=== PATIENT | female | born 1970 | race Caucasian/White ===

== ENCOUNTER → 2016-09-01 | Outpatient (CLI) | payer BC ==
[2016-09-01 13:12] VITALS: BP 148/69; PULSE 106; RESP 14; TEMP 98.4; BMI 40.6
--- NOTE | 2016-09-01 17:01 | P.HPBAR ---
Bariatric H&P - History & Physicial H&P Date: 09/01/16 History & Physicial: Visit/CC: band f/u (wants removed) Patient initial contact: Initial weight: 124.738 kg Initial weight in pounds: 275.00 Height: 5 ft 5 in Initial BMI: 45.7 Last weight: Current weight: 110.677 kg Current weight in pounds: 244.00 Current BMI: 40.6 [place] body weight (based on NIH guidelines): 56.699 kg Excess body weight loss: 20.6% The patient is a 45 year-old F who presents for Bariatric Assessment. Patient presents for lab band follow up. She has not been seen in approximately 8 years. She's had GERD for 4-5 years. She apparently has had a upper GI performed at another institution which shows a dilated esophagus and narrowing in her LAP-BAND. Past Medical History Past Medical History: Asthma Additional Past Medical History / Comment(s): one ectopic History of Any Multi-Drug Resistant Organisms: None Reported Past Surgical History: Bariatric Surgery, Section, Cholecystectomy Additional Past Surgical History / Comment(s): lap band 2002, x 3 Additional Past Anesthesia/Blood Transfusion Reaction / Comm: with first bout of anesthesia patient states she "woke up before my organs did and it felt like I couldn't breathe but every anesthesiologist I have spoken with said that it was related to the way they used to do anesthesia and I've never had any problems since." Past Psychological History: Anxiety Smoking Status: Never smoker - Past Family History Sister(s) Family Medical History: Cancer Additional Family Medical History / Comment(s): sister 1: dx with stage 3 breast cancer. sister 2: dx with melanoma Mother Family Medical History: Asthma, Hyperlipidemia Additional Family Medical History / Comment(s): anemic Father Family Medical History: No Reported History Additional Family Medical History / Comment(s): strong familial hx of cancer however father does not see doctor. Surgical - Exam Vital Signs Temp Pulse Resp BP 98.4 F 106 H 14 148/69 09/01/16 13:05 09/01/16 13:05 09/01/16 13:05 09/01/16 13:05 - General well developed, no distress - Eyes PERRL - ENT normal pinna - Cardiovascular Rhythm: regular - Abdomen Abdomen: soft, non tender Bariatric Assessment & Plan Plan: Patient LAP-BAND was accessed. 0.5 mL removed from her LAP-BAND. The patient wished to have her LAP-BAND removed. I discussed through that she will most likely have weight gain. The patient states that her dysphagia and GERD symptoms are significant and when she wishes of the band removed. She will have the band schedule be removed next week. Bariatric Checklist Checklist: Plan: Checklist: EGD: 1. Hiatal hernia: 2. H. Pylori: HgbA1c: Vitamin D: Smoking: Never smoker Primary care physician referral: Roby ([place], [place]) Psychiatry clearance: Cardiology clearance: Sleep study: Diet journal: VTE risk score: VTE risk level: Rehab needs at discharge:
== END | disposition home or self-care (01) ==
LOC: BARWHC3 12:40
PROVIDERS: ATTEND Surgery
DX: Z48.815 Encounter for surgical aftercare following surgery on the digestive system (principal); Z98.84 Bariatric surgery status; R13.10 Dysphagia, unspecified; K21.9 Gastro-esophageal reflux disease without esophagitis; Z68.41 Body mass index [BMI] 40.0-44.9, adult
CPT/HCPCS: 99202

== ENCOUNTER 2016-10-10 10:18 | Day surgery (SDC) | payer BC ==
[2016-10-09 08:19] VITALS: BMI 39.9
[~2016-10-10 10:18] MED LIST: DEXAMETHASONE SOD PHOSPHATE 10 MG/ML 1 ML VIAL IV ONE; HYDROmorphone 1 MG/ML 1 ML SYRINGE IVP PRN; MIDAZOLAM 2 MG/2 ML VIAL IV PRN; ONDANSETRON 4 MG/2 ML VIAL IVP ONE; SCOPOLAMINE 1.5MG/72HR PATCH TRANSDERM ONE; ceFAZolin 2 GM in SODIUM CHLORIDE 0.9% 100 ML IVPB ONE
[2016-10-10] MEDS: LACTATED RINGERS 1,000 ML IV SCH ×3 (11:34→15:16)
[2016-10-10] MEDS ORDERED: LIDOCAINE 1% 20 ML VIAL (10MG/ML) FOR IV START INTRADERMA ONE (11:34)
--- NOTE | 2016-10-10 12:58 | P.GSHP ---
History of Present Illness H&P Date: 10/10/16 Chief Complaint: GERD, dysphagia 's is a 45-year-old female long-standing problems reflux esophagitis. Patient history of LAP-BAND surgery. She was several LAP-BAND removed secondary to chronic dysphagia. The patient scheduled for laparoscopic LAP-BAND system today. - Constitutional Constitutional: Reports as per HPI Past Medical History Past Medical History: Asthma, GERD/Reflux Additional Past Medical History / Comment(s): states "herniated esophagus" History of Any Multi-Drug Resistant Organisms: None Reported Past Surgical History: Bariatric Surgery, Section, Cholecystectomy Additional Past Surgical History / Comment(s): lap band 2002, x 3 Past Anesthesia/Blood Transfusion Reactions: Previous Problems w/ Anesthesia Additional Past Anesthesia/Blood Transfusion Reaction / Comment(s): with first bout of anesthesia patient states she "woke up before my organs did and it felt like I couldn't breathe but every anesthesiologist I have spoken with said that it was related to the way they used to do anesthesia and I've never had any problems since." Past Psychological History: Anxiety Smoking Status: Never smoker Past Alcohol Use History: Rare Past Drug Use History: None Reported - Past Family History Sister(s) Family Medical History: Cancer Additional Family Medical History / Comment(s): sister 1: dx with stage 3 breast cancer. sister 2: dx with melanoma Mother Family Medical History: Asthma, Hyperlipidemia Additional Family Medical History / Comment(s): anemic Father Family Medical History: No Reported History Additional Family Medical History / Comment(s): strong familial hx of cancer however father does not see doctor. Medications and Allergies Home Medications Medication Instructions Recorded Confirmed Type clonazePAM [KlonoPIN] 0.25 mg PO Q12HR PRN 09/01/16 10/10/16 History Albuterol Sulfate [Proair Hfa] 1 - 2 puff INHALATION Q6HR PRN 10/09/16 10/10/16 History Esomeprazole Magnesium [NexIUM] 20 mg PO DIRECTED PRN 10/09/16 10/10/16 History Allergies Allergy/AdvReac Type Severity Reaction Status Date / Time No Known Allergies Allergy Verified 10/10/16 11:15 Surgical - Exam Vital Signs Temp Pulse Resp BP Pulse Ox 98.2 F 100 16 138/90 98 10/10/16 11:08 10/10/16 11:08 10/10/16 11:08 10/10/16 11:08 10/10/16 11:08 - General well developed, no distress - Eyes PERRL - ENT normal pinna - Neck no masses - Respiratory normal expansion - Cardiovascular Rhythm: regular - Abdomen Abdomen: soft, non tender Assessment and Plan Plan: GERD, dysphagia. We'll perform laparoscopic removal of LAP-BAND system.
[2016-10-10] MEDS ORDERED: NEOSTIGMINE 1 MG/ML 10 ML VIAL ONE (13:05)
[2016-10-10] MEDS ORDERED: SUCCINYLCHOLINE CHLORIDE 100 MG/5 ML SYR IV ONE (13:05)
[2016-10-10] MEDS ORDERED: KETOROLAC 30 MG/ML 1 ML VIAL ONE (13:05)
[2016-10-10] MEDS ORDERED: fentaNYL (PF) 50 MCG/ML 2 ML AMP ONE (13:05)
[2016-10-10] MEDS ORDERED: HYDROmorphone (PF) 1 MG/ML ONE (13:05)
[2016-10-10] MEDS ORDERED: MIDAZOLAM 2 MG/2 ML VIAL ONE (13:05)
[2016-10-10] MEDS ORDERED: PROPOFOL 10 MG/ML 20 ML VIAL IV ONE (13:05)
[2016-10-10] MEDS ORDERED: GLYCOPYRROLATE 0.2 MG/ML 2 ML VIAL ONE (13:05)
[2016-10-10] MEDS ORDERED: LIDOCAINE 1% INJ 10MG/ML (20 ML MDV) ONE (13:05)
[2016-10-10] MEDS ORDERED: ROCURONIUM BROMIDE 10 MG/ML 10 ML VIAL IV ONE (13:05)
[2016-10-10] MEDS ORDERED: BUPIVACAIN-EPI 0.25%-1:200,000 30 ML VIAL SQ ONE ×2 (13:39)
--- NOTE | 2016-10-10 13:55 | P.OP ---
Date of Procedure: 10/10/16 Preoperative Diagnosis: GERD Dysphagia Postoperative Diagnosis: GERD Dysphagia Procedure(s) Performed: Laparoscopic removal of LAP-BAND system Anesthesia: OLMAN Surgeon: Mikey Ba Estimated Blood Loss (ml): 5 Pathology: none sent Condition: stable Disposition: PACU Description of Procedure: The patient's placed the operative table in the supine position. She received general anesthesia. Her abdomen was prepped and draped in usual sterile fashion. Patient was placed in dorsal lithotomy position. The skin incision sites were anesthetized 1% local Xylocaine. Using 11 blade the LAP-BAND port site was incised and then using left cautery and blunt and sharp dissection the LAP-BAND port was dissected free from the fascia. The PEG tube was then cut. Next using a 15 mm blade was trocar under direct visualization panel cavity was entered. The abdomen was insufflated and then the lap scope was placed back into the perineal cavity. A fibrillar trocar was placed in the right epigastric and right lateral and left lateral position. The left lateral lobe of liver was retracted. The adhesions Lin device were lysed using electrocautery and sharp dissection. The lap band buckle was dissected using a large cautery and then the LAP-BAND device was cut and withdrawn from around stomach. There is no injury to the stomach or esophagus seen. The LAP-BAND device and brought up through the 15 mm trocar site. There is no bleeding from the stomach or peritoneal cavity Cavity. The trochars withdrawn. The skin was closed interrupted 3-0 Monocryl suture. Dermabond was applied. Patient top she will was sent to recovery in stable condition.
[2016-10-10 14:15] VITALS: TEMP 98
[2016-10-10 14:30] VITALS: RESP 16
[2016-10-10 15:38] VITALS: BP 108/74; PULSE 88
== END 2016-10-10 16:29 | disposition home or self-care (01) ==
LOC: OR 10:18
PROVIDERS: ATTEND Surgery
DX: T85.898A Other specified complication of other internal prosthetic devices, implants and grafts, initial encounter (principal); R13.10 Dysphagia, unspecified; K21.0 Gastro-esophageal reflux disease with esophagitis; J45.909 Unspecified asthma, uncomplicated
CPT/HCPCS: 81025; 43774; J2250; J1100; J2710; J0690; J2405; J2001; J3010; J1885; J1170; J0330; J2704